=== PATIENT | female | born 1985 | race Two or more races ===

== ENCOUNTER 2020-08-15 14:35 | Outpatient (CLI) | payer OTHER | END 2020-08-15 14:46 | disposition home or self-care (01) | LOC: SONOGRAMA 14:35 | DX: N60.02 Solitary cyst of left breast (principal); N64.4 Mastodynia; N64.59 Other signs and symptoms in breast ==

== ENCOUNTER 2020-10-03 13:05 | Outpatient (CLI) | payer OTHER | END 2020-10-03 13:28 | disposition HB | LOC: MAMO-SONO 13:05 | DX: Z12.31 Encounter for screening mammogram for malignant neoplasm of breast (principal); N64.59 Other signs and symptoms in breast; N64.4 Mastodynia ==

== ENCOUNTER 2021-04-02 15:34 | Outpatient (CLI) | payer OTHER | END 2021-04-02 15:46 | disposition home or self-care (01) | LOC: SONOGRAMA 15:34 | PROVIDERS: ATTEND General Practice | DX: N64.89 Other specified disorders of breast (principal) ==

== ENCOUNTER 2022-07-23 08:45 | Outpatient (CLI) | payer OTHER | END 2022-07-23 09:33 | disposition home or self-care (01) | LOC: MAMO-SONO 08:45 | DX: N60.29 Fibroadenosis of unspecified breast (principal); Z12.39 Encounter for other screening for malignant neoplasm of breast ==

== ENCOUNTER 2023-08-05 08:04 | Outpatient (CLI) | payer OTHER | END 2023-08-05 08:07 | disposition home or self-care (01) | LOC: MAMO-SONO 08:04 | DX: N60.29 Fibroadenosis of unspecified breast (principal); Z12.39 Encounter for other screening for malignant neoplasm of breast; Z12.31 Encounter for screening mammogram for malignant neoplasm of breast ==